=== PATIENT | female | born 1990 | race Caucasian/White ===

== ENCOUNTER 2016-11-23 04:14 | Outpatient (CLI) | payer SELFPAY ==
[2016-11-23] MEDS ORDERED: VISTARIL PO ONE (07:30)
== END 2016-11-23 07:50 | disposition home or self-care (01) ==
LOC: TRG 04:14
PROVIDERS: ATTEND Obstetrics & Gynecology
DX: O62.9 Abnormality of forces of labor, unspecified (principal); Z3A.40 40 weeks gestation of pregnancy
CPT/HCPCS: 59025; Q0177

== ENCOUNTER 2016-11-23 12:16 | Inpatient (IN) | payer OTHER ==
[2016-11-23] MEDS ORDERED: LACTATED RINGERS 2,000 ML ONE (12:21)
[2016-11-23] MEDS ORDERED: STADOL IV PRN (13:20)
[2016-11-23] MEDS ORDERED: MINERAL OIL PO PRN (13:20)
[2016-11-23] MEDS ORDERED: ePHEDrine SULFATE IV PRN ×2 (13:20→16:15)
[2016-11-23] MEDS ORDERED: ZOFRAN IV PRN (13:20)
[2016-11-23] MEDS ORDERED: SUBLIMAZE IV PRN (13:20)
[2016-11-23] MEDS ORDERED: BRETHINE SUB-Q PRN (13:20)
[2016-11-23] MEDS ORDERED: BRETHINE IVP PRN (13:20)
--- NOTE | 2016-11-23 13:27 | History and Physical Report ---
History of Present Illness Date of examination: 11/23/16 Date of admission: 11/23/16 12:16 Chief complaint: Active labor History of present illness: 26 yo at 40.1 weeks gestation. Pt of [employer]NAGER since 8.2 weeks. GBS negative. Past History Past Medical History: no pertinent history Past Surgical History: no surgical history Family/Genetic History: cancer (stomach), other (Alzheimers) Social history: full code, other (French speaking only). denies: smoking, alcohol abuse, prescription drug abuse, IV drug use - Obstetrical History Expected Date of Delivery: 11/22/16 Actual Gestation: 40 Week(s) 1 Day(s) : 2 Para: 0 Hx # Term Pregnancies: 0 Number of Pregnancies: 0 Spontaneous Abortions: 1 Induced : 0 Number of Living Children: 0 Medications and Allergies Allergies Allergy/AdvReac Type Severity Reaction Status Date / Time No Known Allergies Allergy Verified 11/23/16 07:25 Active Meds: Active Medications Butorphanol Tartrate (Stadol) 2 mg IV Q2H PRN PRN Reason: Pain , Severe (7-10) Ephedrine Sulfate (Ephedrine Sulfate) 10 mg IV Q2M PRN PRN Reason: Hypotension Stop: 11/23/16 13:25 Fentanyl (Sublimaze) 100 mcg IV Q2H PRN PRN Reason: Labor Pain Lactated Ringer's (Lactated Ringers) 1,000 mls @ 125 mls/hr IV DIRECT COLIN Oxytocin/Sodium Chloride (Pitocin/Ns 20 Unit/1000ml Drip) 20 units in 1,000 mls @ 125 mls/hr IV DIRECT COLIN Oxytocin/Sodium Chloride (Pitocin/Ns 30 Unit/500ml) 30 units in 500 mls @ 2 mls /hr IV TITR COLIN PRN Reason: Protocol Lidocaine (Xylocaine 2%) 20 ml INFILTRATI ONCE ONE Stop: 11/23/16 13:21 Mineral Oil (Mineral Oil) 30 ml PO QHS PRN PRN Reason: Constipation Ondansetron HCl (Zofran) 4 mg IV Q8H PRN PRN Reason: Nausea And Vomiting Review of Systems All systems: negative - Vital Signs Vital signs: Vital Signs Pulse BP 80 126/76 11/23/16 12:55 11/23/16 12:55 Temp Pulse Resp BP Pulse Ox 80 126/76 11/23/16 12:55 11/23/16 12:55 - Physical Exam Cardiovascular: Regular rate Lungs: Positive: Normal air movement Vagina: Positive: normal moisture (normal show) Uterus: Positive: enlarged Extremities: Positive: normal Deep Tendon Reflex Grade: Normal +2 - Obstetrical FHR: category 1 FHR comments: FHT 145 Uterine Contraction Monitor Mode: External Cervical Dilatation: 4.5 (in office) Cervical Effacement Percentage: 80 station: -1 Uterine Contraction Frequency (min): q4min Uterine Contraction Pattern: Regular Uterine Tone Measurement Phase: Resting Uterine Contraction Intensity: Moderate Results All other labs normal. Assessment and Plan A: IUP @ 40.1 weeks Category 1 FHT Painful contractions GBS negative P: Admit to L&D Pain medication/epidural as desired.
[2016-11-23] MEDS ORDERED: XYLOCAINE 2% INFILTRATI ONE (14:00)
[2016-11-23] MEDS ORDERED: PITOCin/NS 30 UNIT/500ML 30 UNITS/500 ML BAG IV SCH (14:00)
[2016-11-23] MEDS ORDERED: PITOCin/NS 20 UNIT/1000ML DRIP 20 UNITS/1,000 ML BAG IV SCH (14:00)
[2016-11-23] MEDS ORDERED: LACTATED RINGERS 1,000 ML IV SCH (14:00)
[2016-11-23 14:42] LABS: Hematocrit 37.3 % (30.3-42.9); Hemoglobin 12.2 gm/dl (10.1-14.3); Mean Corpuscular HGB Conc 33 % (30-34); Mean Corpuscular Hemoglobin 29 pg (28-32); Mean Corpuscular Volume 87 fl (79-97); Platelet Count 220 K/mm3 (140-440); Red Blood Count 4.27 M/mm3 (3.65-5.03); Red Cell Distribution Width 13.6 % (13.2-15.2)
[2016-11-23 14:51] LABS: White Blood Count 22.1 K/mm3 (4.5-11.0)
[2016-11-23] MEDS ORDERED: ePHEDrine SULFATE ONE (15:39)
[2016-11-23] MEDS ORDERED: NARCAN 2 MG/2 ML IV PRN (16:15)
--- NOTE | 2016-11-23 16:15 | Anesthesia Consultation ---
Anesthesia Consult and Med Hx Date of service: 11/23/16 - Airway Anesthetic Teeth Evaluation: Good ROM Head & Neck: Adequate Mental/Hyoid Distance: Adequate Mallampati Class: Class II Intubation Access Assessment: Probably Good - Pulmonary Exam CTA: Yes - Cardiac Exam Cardiac Exam: RRR - Pre-Operative Health Status ASA Pre-Surgery Classification: ASA2 Proposed Anesthetic Plan: Epidural, Spinal - Pulmonary Hx Asthma: No COPD: No Hx Pneumonia: No - Cardiovascular System Hx Hypertension: No - Central Nervous System Hx Seizures: No Hx Psychiatric Problems: No - Endocrine Hx Renal Disease: No Hx End Stage Renal Disease: No Hx Hypothyroidism: No Hx Hyperthyroidism: No - Hematic Hx Anemia: Yes Hx Sickle Cell Disease: No - Other Systems Hx Alcohol Use: No - Additional Comments Anesthesia Medical History Comments: +iup
[2016-11-23] MEDS ORDERED: fentaNYL-BUPIV 2 MCG/ML-0.125% 200 MCG/100 ML BAG EPIDURAL SCH (17:00)
[2016-11-23] MEDS ORDERED: MARCAINE-EPI/PF 0.5%-1:200,000 INFILTRATI ONE (19:03)
--- NOTE | 2016-11-23 19:29 | Progress Note ---
Assessment and Plan A: IUP @ 40.1 weeks Category 2 FHT Feeling pressure with epidural AROM 1920, small cloudy fluid SVE 9.5-90-0 GBS negative P: Continue routine care Labor down Subjective - Subjective Date of service: 11/23/16 Principal diagnosis: Labor Interval history: 26 yo at 40.1 weeks gestation. Pt of [employer] TECH since 8.2 weeks. GBS negative. Patient reports: movement normal Objective - Vital Signs Vital Signs: Vital Signs - 12hr 11/23/16 11/23/16 11/23/16 12:55 14:08 16:00 Pulse Rate 80 81 Respiratory 18 Rate Blood Pressure 126/76 120/67 O2 Sat by Pulse Oximetry 11/23/16 11/23/16 11/23/16 16:01 16:04 16:06 Pulse Rate 92 H 86 88 Respiratory Rate Blood Pressure 102/59 104/58 O2 Sat by Pulse 99 98 Oximetry 11/23/16 11/23/16 11/23/16 16:08 16:10 16:11 Pulse Rate 102 H 90 Respiratory Rate Blood Pressure 100/58 101/59 O2 Sat by Pulse 98 Oximetry 11/23/16 11/23/16 11/23/16 16:12 16:14 16:16 Pulse Rate 88 88 84 Respiratory Rate Blood Pressure 115/54 101/51 95/54 O2 Sat by Pulse 98 Oximetry 11/23/16 11/23/16 11/23/16 16:18 16:20 16:21 Pulse Rate 82 82 86 Respiratory Rate Blood Pressure 95/57 94/54 O2 Sat by Pulse 97 Oximetry 11/23/16 11/23/16 11/23/16 16:22 16:24 16:26 Pulse Rate 86 82 90 Respiratory Rate Blood Pressure 93/54 94/58 96/57 O2 Sat by Pulse 96 Oximetry 11/23/16 11/23/16 11/23/16 16:28 16:30 16:31 Pulse Rate 74 78 Respiratory Rate Blood Pressure 90/58 100/62 O2 Sat by Pulse 99 Oximetry 11/23/16 11/23/16 11/23/16 16:32 16:34 16:36 Pulse Rate 80 76 78 Respiratory Rate Blood Pressure 87/48 85/50 89/54 O2 Sat by Pulse 100 Oximetry 11/23/16 11/23/16 11/23/16 16:38 16:40 16:41 Pulse Rate 83 79 83 Respiratory Rate Blood Pressure 89/50 91/53 O2 Sat by Pulse 99 Oximetry 11/23/16 11/23/16 11/23/16 16:42 16:44 16:46 Pulse Rate 80 78 80 Respiratory Rate Blood Pressure 88/50 90/51 95/52 O2 Sat by Pulse 99 Oximetry 11/23/16 11/23/16 11/23/16 16:48 16:50 16:51 Pulse Rate 75 77 82 Respiratory Rate Blood Pressure 100/55 95/54 O2 Sat by Pulse 99 Oximetry 11/23/16 11/23/16 11/23/16 16:52 16:54 16:56 Pulse Rate 81 85 86 Respiratory Rate Blood Pressure 92/55 92/53 97/55 O2 Sat by Pulse 99 Oximetry 11/23/16 11/23/16 11/23/16 16:58 17:00 17:01 Pulse Rate 83 78 81 Respiratory Rate Blood Pressure 95/51 118/61 O2 Sat by Pulse 99 Oximetry 11/23/16 11/23/16 11/23/16 17:02 17:04 17:06 Pulse Rate 77 74 77 Respiratory Rate Blood Pressure 109/58 104/58 110/64 O2 Sat by Pulse 99 Oximetry 11/23/16 11/23/16 11/23/16 17:11 17:16 17:21 Pulse Rate 76 77 74 Respiratory Rate Blood Pressure O2 Sat by Pulse 98 98 98 Oximetry 11/23/16 11/23/16 11/23/16 17:22 17:26 17:31 Pulse Rate 76 77 74 Respiratory Rate Blood Pressure 110/62 O2 Sat by Pulse 98 98 Oximetry 11/23/16 11/23/16 11/23/16 17:36 17:41 17:46 Pulse Rate 78 79 89 Respiratory Rate Blood Pressure 113/63 O2 Sat by Pulse 98 99 100 Oximetry 11/23/16 11/23/16 11/23/16 17:51 17:53 17:56 Pulse Rate 88 78 83 Respiratory Rate Blood Pressure 116/68 O2 Sat by Pulse 99 98 Oximetry 11/23/16 11/23/16 11/23/16 18:01 18:06 18:11 Pulse Rate 83 83 77 Respiratory Rate Blood Pressure 116/68 O2 Sat by Pulse 98 98 98 Oximetry 11/23/16 11/23/16 11/23/16 18:16 18:21 18:23 Pulse Rate 76 84 80 Respiratory Rate Blood Pressure 118/67 O2 Sat by Pulse 98 98 Oximetry 11/23/16 11/23/16 11/23/16 18:26 18:31 18:36 Pulse Rate 83 79 80 Respiratory Rate Blood Pressure O2 Sat by Pulse 99 99 98 Oximetry 11/23/16 11/23/16 11/23/16 18:37 18:41 18:46 Pulse Rate 78 89 84 Respiratory Rate Blood Pressure 117/68 O2 Sat by Pulse 98 98 Oximetry 11/23/16 11/23/16 11/23/16 18:51 18:52 18:56 Pulse Rate 81 82 78 Respiratory Rate Blood Pressure 111/64 O2 Sat by Pulse 97 99 Oximetry 11/23/16 11/23/16 11/23/16 19:01 19:06 19:11 Pulse Rate 79 77 83 Respiratory Rate Blood Pressure 115/68 O2 Sat by Pulse 99 98 97 Oximetry 11/23/16 11/23/16 11/23/16 19:16 19:21 19:23 Pulse Rate 86 89 79 Respiratory Rate Blood Pressure 97/50 O2 Sat by Pulse 97 99 Oximetry - Exam Cardiovascular: Regular rate Lungs: Normal air movement FHR: category 2 FHR comments: FHR 150s with occasional late decelerations Uterine Contraction Monitor Mode: External Cervical Dilatation: 9.5 (AROM small amount of cloudy fluid) Cervical Effacement Percentage: 90 station: 0 Uterine Contraction Frequency (min): q1.5-3 Uterine Contraction Pattern: Regular Uterine Tone Measurement Phase: Resting Uterine Contraction Intensity: Strong/Firm - Labs Labs: Abnormal Labs 11/23/16 14:10 WBC 22.1 H Laboratory Results - last 24 hr 11/23/16 11/23/16 14:10 14:10 WBC 22.1 H RBC 4.27 Hgb 12.2 Hct 37.3 MCV 87 MCH 29 MCHC 33 RDW 13.6 Plt Count 220 Blood Type O POSITIVE Antibody Screen TNR ALAN Antibody Screen Negative
--- NOTE | 2016-11-23 21:42 | Procedure Note ---
OB Delivery Note - Delivery Date of Delivery: 11/23/16 (2120) Surgeon: MARIELY MILES Estimated blood loss: 200cc - Vaginal Delivery presentation: vertex Delivery position: OA Intrapartum events: mult. late decelerations, mult.variable deceleratio Delivery induction: none Delivery augmentation: rupture of membranes, pitocin Delivery monitor: external FHT, external uterine Route of delivery: Delivery placenta: spontaneous Delivery cord: 3 umbilical vessels Anesthesia: epidural Delivery comments: Baby girl Diego was delivered on 11/23/2016 @ 2120 over an intact perineum with small, hemostatic labial lacerations. was placed directly onto mother's chest/abdomen and cord was clamped and cut by FOB. Placenta delivered negron side presenting. Undus firm and midline, minimal bleeding. weighed 7lbs and had apgars of 8/9. EBL 200cc. - Infant A at 1 minute: 8 at 5 minutes: 9 Gender: Female
[2016-11-23] MEDS ORDERED: MILK OF MAGNESIA PO PRN (21:43)
[2016-11-23] MEDS ORDERED: LANSINOH TP PRN (21:43)
[2016-11-23] MEDS ORDERED: DULCOLAX PR PRN (21:43)
[2016-11-23] MEDS ORDERED: TUCKS PAD TP PRN (21:43)
[2016-11-23] MEDS ORDERED: TYLENOL PO PRN (21:43)
[2016-11-23] MEDS ORDERED: NORCO 5/325 PO PRN (21:43)
[2016-11-23] MEDS ORDERED: SODIUM CHLORIDE FLUSH SYRINGE 10 ML IV PRN (22:00)
[2016-11-24] MEDS: MOTRIN PO SCH ×4 (00:25→18:01)
--- NOTE | 2016-11-24 08:27 | Progress Note ---
Assessment and Plan A: PPD 1 S/P VSS P: Routine care D/C tomorrow Plans for pills for contraception Subjective - Subjective Date of service: 11/24/16 Principal diagnosis: PPD1 Interval history: 26 yo at 40.1 weeks gestation. 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 GBS negative. Patient reports: appetite normal, voiding normally, pain well controlled, ambulating normally [place]: doing well Objective - Vital Signs Latest vital signs: Vital Signs Temp Pulse Pulse Resp BP BP Pulse Ox 11/24/16 08:10 98.6 F 108 H 18 95/60 11/24/16 04:10 98.2 F 87 18 93/63 11/23/16 23:30 98.3 F 85 18 97/51 11/23/16 22:27 83 103/55 11/23/16 22:12 84 96/55 11/23/16 21:57 83 105/58 11/23/16 21:42 92 H 118/63 11/23/16 21:26 86 111/61 11/23/16 21:22 80 111/60 11/23/16 20:36 86 114/64 11/23/16 20:31 85 99 11/23/16 20:26 78 100 11/23/16 20:21 86 106/56 99 11/23/16 20:16 83 100 11/23/16 20:11 88 100 11/23/16 20:06 82 101/59 100 11/23/16 20:01 83 100 11/23/16 19:56 95 H 99 11/23/16 19:51 97 H 103/65 98 11/23/16 19:46 84 97 11/23/16 19:41 82 99 11/23/16 19:38 71 109/65 11/23/16 19:37 75 104/65 11/23/16 19:36 82 99 11/23/16 19:31 85 97 11/23/16 19:26 76 99 11/23/16 19:23 79 97/50 11/23/16 19:21 89 99 11/23/16 19:16 86 97 11/23/16 19:11 83 97 11/23/16 19:06 77 115/68 98 11/23/16 19:01 79 99 11/23/16 18:56 78 99 0530/17 18:52 82 111/64 0530/17 18:51 81 97 0530/17 18:46 84 98 0530/17 18:41 89 98 0530/17 18:37 78 117/68 0530/17 18:36 80 98 0530/17 18:31 79 99 0530/17 18:26 83 99 0530/17 18:23 80 118/67 0530/17 18:21 84 98 0530/17 18:16 76 98 0530/17 18:11 77 98 0530/17 18:06 83 116/68 98 0530/17 18:01 83 98 0530/17 17:56 83 98 0530/17 17:53 78 116/68 0530/17 17:51 88 99 0530/17 17:46 89 100 0530/17 17:41 79 99 0530/17 17:36 78 113/63 98 0530/17 17:31 74 98 0530/17 17:26 77 98 0530/17 17:22 76 110/62 0530/17 17:21 74 98 0530/17 17:16 77 98 0530/17 17:11 76 98 0530/17 17:06 77 110/64 99 0530/17 17:04 74 104/58 0530/17 17:02 77 109/58 0530/17 17:01 81 99 0530/17 17:00 78 118/61 0530/17 16:58 83 95/51 0530/17 16:56 86 97/55 99 0530/17 16:54 85 92/53 0530/17 16:52 81 92/55 0530/17 16:51 82 99 0530/17 16:50 77 95/54 0530/17 16:48 75 100/55 05/30/17 16:46 80 95/52 99 0530/17 16:44 78 90/51 0530/17 16:42 80 88/50 0530/17 16:41 83 99 05/30/17 16:40 79 91/53 0530/17 16:38 83 89/50 05/30/17 16:36 78 89/54 100 05/30/17 16:34 76 85/50 11/23/16 16:32 80 87/48 11/23/16 16:31 78 99 11/23/16 16:30 74 100/62 11/23/16 16:28 90/58 11/23/16 16:26 90 96/57 96 11/23/16 16:24 82 94/58 11/23/16 16:22 86 93/54 11/23/16 16:21 86 97 11/23/16 16:20 82 94/54 11/23/16 16:18 82 95/57 11/23/16 16:16 84 95/54 98 11/23/16 16:14 88 101/51 11/23/16 16:12 88 115/54 11/23/16 16:11 90 98 11/23/16 16:10 101/59 11/23/16 16:08 102 H 100/58 11/23/16 16:06 88 104/58 98 11/23/16 16:04 86 102/59 11/23/16 16:01 92 H 99 11/23/16 16:00 81 120/67 11/23/16 14:08 18 11/23/16 12:55 80 126/76 Intake and Output 11/23/16 11/24/16 11/24/16 22:59 06:59 14:59 Intake Total 240 240 Output Total 1200 400 Balance -960 -160 Intake: Oral 240 240 Output: Urine 1200 400 Void 1200 400 Other: Total, Intake Amount 240 240 Total, Output Amount 800 400 Weight 158 lb Estimated Blood Loss 200 - Exam Cardiovascular: Present: Regular rate Lungs: Present: Normal air movement Vulva: both: normal (scant lochia) Uterus: Present: fundal height below umbilicus Extremities: Present: normal Deep Tendon Reflex Grade: Normal +2 - Labs Labs: Abnormal lab results 11/23/16 Range/Units 14:10 WBC 22.1 H (4.5-11.0) K/mm3 - Allied health notes Allied health notes reviewed: nursing
--- NOTE | 2016-11-24 08:29 | Discharge Summary ---
Providers - Providers Date of Admission: 11/23/16 12:16 Date of discharge: 11/25/16 Attending physician: IBRAHIMA BRADY MD Primary care physician: IBRAHIMA BRADY MD Hospitalization Reason for admission: active labor Delivery: Other procedures: none complications: none Discharge diagnosis: IUP at term delivered [place] baby: female Hospital course: uneventful Condition at discharge: Good Disposition: DISCHARGED TO HOME OR SELFCARE Plan - Provider Discharge Summary Activity: routine, no sex for 6 weeks, no heavy lifting 4 weeks, no strenuous exercise Diet: routine Instructions: routine Additional instructions: [] Smoking cessation referral if applicable(refer to patient education folder for contact #) [] Refer to [facility] Booklet Call your doctor immediately for: * Fever > 100.5 * Heavy vaginal bleeding ( >1 pad per hour) * Severe persistent headache * Shortness of breath * Reddened, hot, painful area to leg or breast * Drainage or odor from incision. * Keep incision clean and dry at all times and follow doctor's instructions regarding bathing/showering - Follow up plan Follow up: [facility] [Provider Group] - 6 Weeks
[2016-11-24 10:29] LABS: Hematocrit 35.3 % (30.3-42.9); Hemoglobin 11.8 gm/dl (10.1-14.3)
[2016-11-25] MEDS: MOTRIN PO SCH ×2 (00:10→06:05)
[2016-11-25 09:30] VITALS: BP 96/60
== END 2016-11-25 14:40 | disposition home or self-care (01) | DRG 775 ==
LOC: LD 12:16 → OB 23:13
PROVIDERS: ADMIT Obstetrics & Gynecology; ATTEND Obstetrics & Gynecology
PROC: 10E0XZZ Delivery of Products of Conception, External Approach (ICD-10-PCS; principal; 2016-11-23)
PROC: 3E0S3CZ (ICD-10-PCS; 2016-11-23)
PROC: 00HU33Z Insertion of Infusion Device into Spinal Canal, Percutaneous Approach (ICD-10-PCS; 2016-11-23)
PROC: 10907ZC Drainage of Amniotic Fluid, Therapeutic from Products of Conception, Via Natural or Artificial Opening (ICD-10-PCS; 2016-11-23)
DX: O76 Abnormality in fetal heart rate and rhythm complicating labor and delivery (principal); Z3A.40 40 weeks gestation of pregnancy; Z37.0 Single live birth; Z80.0 Family history of malignant neoplasm of digestive organs; Z82.0 Family history of epilepsy and other diseases of the nervous system
CPT/HCPCS: 36415; 85014; 85018; 85027; 86850; 86900; 86901; 99211; G0463; J2590; J3010; J7120

== ENCOUNTER 2018-11-27 16:11 | Inpatient (IN) | payer MEDICAID, OTHER ==
[2018-11-27] MEDS ORDERED: BRETHINE IVP PRN (17:41)
[2018-11-27] MEDS ORDERED: STADOL IV PRN (17:41)
[2018-11-27] MEDS ORDERED: AMPICILLIN/NS 2 GM/100 ML 2 GM/100 ML BAG IV ONE (17:41)
[2018-11-27] MEDS ORDERED: SUBLIMAZE IV PRN (17:41)
[2018-11-27] MEDS ORDERED: MINERAL OIL PO PRN (17:41)
[2018-11-27] MEDS ORDERED: BRETHINE SUB-Q PRN (17:41)
[2018-11-27] MEDS ORDERED: XYLOCAINE 2% INFILTRATI ONE (17:41)
--- NOTE | 2018-11-27 17:56 | History and Physical Report ---
History of Present Illness Date of examination: 11/27/18 Date of admission: 11/27/18 16:11 Chief complaint: " Sent from the office for delivery" History of present illness: 28yo G 3 P 1 0 1 1 @ 40 weeks 3 days here from the clinic for induction of labor secondary to oligohydramnios and postdates. US 11/27/18: ELISA 7.14, Placenta Grade 3. She reports +FMs but denies UCs, VB or LOF. 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 Her course has been unremarkable. Labs: O+, Antibody Screen neg, RI, VDRL NRHBsAg neg, HIV neg, GC/CT/Trich neg, MSAFP neg, Diabetes Screen 70, GBS pos. Past History Past Medical History: no pertinent history Past Surgical History: no surgical history Family/Genetic History: cancer (stomach), other (Alzheimer's Disease) Social history: no significant social history, , lives with family, full code. denies: smoking, alcohol abuse, prescription drug abuse, IV drug use - Obstetrical History Expected Date of Delivery: 11/24/18 Actual Gestation: 40 Week(s) 3 Day(s) : 3 Para: 1 Hx # Term Pregnancies: 1 Number of Pregnancies: 0 Spontaneous Abortions: 1 Induced : 0 Number of Living Children: 1 #1 Gender: Female year: 2015 (11/23/2014) Birthweight: 3.487 kg Method of Delivery: Vaginal Gestational age at delivery: 40 Complications: none Medications and Allergies Allergies Allergy/AdvReac Type Severity Reaction Status Date / Time No Known Allergies Allergy Verified 11/23/16 07:25 Home Medications Medication Instructions Recorded Confirmed Last Taken Type No Known Home Medications [No 11/23/16 11/23/16 Unknown History Reported Home Medications] Review of Systems All systems: negative - Physical Exam Abdomen: Positive: normal appearance, soft Genitourinary (Female): Positive: normal external genitalia, normal perenium Vulva: both: normal Vagina: Positive: normal moisture Uterus: Positive: normal size, normal contour Anus/Rectum: Positive: normal perianal skin Extremities: Positive: normal - Obstetrical FHR: auscultation normal, category 1 FHR comments: baseline 130, moderate variability, 15x15 accels, no decels Uterine Contraction Monitor Mode: External Cervical Dilatation: 2.5 Cervical Effacement Percentage: 60 station: -2 Uterine Contraction Frequency (min): 2-5 Uterine Contraction Pattern: Regular Results All other labs normal. Assessment and Plan - Patient Problems (1) 40 weeks gestation of Current Visit: Yes Status: Acute (2) Oligohydramnios in third trimester Current Visit: Yes Status: Acute Qualifiers: Fetus number: single or unspecified fetus Qualified Code(s): O41.03X0 - Oligohydramnios, third trimester, not applicable or unspecified (3) Encounter for induction of labor Current Visit: Yes Status: Acute Plan to address problem: Admit to L&D with routine labor orders Start oxytocin for labor induction Anticipate vaginal delivery (4) Group B Streptococcus carrier, +RV culture, currently Current Visit: Yes Status: Acute Plan to address problem: Start Ampicillin for GBS prophylaxis
[2018-11-27] MEDS ORDERED: PITOCin/NS 30 UNIT/500ML 30 UNITS/500 ML BAG IV SCH (18:00)
[2018-11-27] MEDS ORDERED: PITOCin/NS 20 UNIT/1000ML DRIP 20 UNITS/1,000 ML BAG IV SCH (18:00)
[2018-11-27] MEDS ORDERED: LACTATED RINGERS 1,000 ML IV SCH (18:00)
[2018-11-27 18:11] LABS: Hematocrit 34.7 % (30.3-42.9); Hemoglobin 11.7 gm/dl (10.1-14.3); Mean Corpuscular HGB Conc 34 % (30-34); Mean Corpuscular Volume 87 fl (79-97); Platelet Count 203 K/mm3 (140-440); Red Blood Count 3.99 M/mm3 (3.65-5.03); Red Cell Distribution Width 14.1 % (13.2-15.2)
[2018-11-28] MEDS ORDERED: AMPICILLIN/NS 1 GM/50 ML 1 GM/50 ML BAG ONE (03:00)
[2018-11-28] MEDS ORDERED: AMPICILLIN/NS 1 GM/50 ML 1 GM/50 ML BAG IV SCH (04:00)
[2018-11-28] MEDS ORDERED: NARCAN 2 MG/2 ML IV PRN (04:10)
--- NOTE | 2018-11-28 04:10 | Anesthesia Consultation ---
Anesthesia Consult and Med Hx Date of service: 11/28/18 - Airway Anesthetic Teeth Evaluation: Good ROM Head & Neck: Adequate Mental/Hyoid Distance: Adequate Mallampati Class: Class II Intubation Access Assessment: Good - Pulmonary Exam CTA: Yes - Cardiac Exam Cardiac Exam: RRR - Pre-Operative Health Status ASA Pre-Surgery Classification: ASA2 Proposed Anesthetic Plan: Epidural - Pulmonary Hx Asthma: No COPD: No Hx Pneumonia: No - Cardiovascular System Hx Hypertension: No - Central Nervous System Hx Seizures: No Hx Psychiatric Problems: No - Endocrine Hx Renal Disease: No Hx End Stage Renal Disease: No Hx Hypothyroidism: No Hx Hyperthyroidism: No - Hematic Hx Anemia: Yes Hx Sickle Cell Disease: No - Other Systems Hx Alcohol Use: No
[2018-11-28] MEDS ORDERED: fentaNYL-BUPIV 2 MCG/ML-0.125% 200 MCG/100 ML BAG EPIDURAL SCH (05:00)
--- NOTE | 2018-11-28 08:04 | Procedure Note ---
OB Delivery Note - Delivery Date of Delivery: 11/28/18 Surgeon: IBRAHIMA BLAIR Estimated blood loss: 100cc - Vaginal Delivery presentation: vertex Delivery position: OA Delivery induction: oxytocin Delivery augmentation: rupture of membranes, pitocin Delivery monitor: external FHT, external uterine Route of delivery: Delivery placenta: spontaneous Delivery cord: 3 umbilical vessels Episiotomy: none Delivery laceration: none Anesthesia: epidural Delivery comments: Infant delivered OA and placed on Mom's chest for [id number] bonding and delayed cord clamping, cut by Dad - A at 1 minute: 8 at 5 minutes: 9 Gender: Male (2866gms)
[2018-11-28] MEDS ORDERED: ZOFRAN IV PRN (08:07)
[2018-11-28] MEDS ORDERED: LANSINOH TP PRN (08:07)
[2018-11-28] MEDS ORDERED: BENADRYL PO PRN (08:07)
[2018-11-28] MEDS ORDERED: TUCKS PAD TP PRN (08:07)
[2018-11-28] MEDS ORDERED: PHENERGAN PO PRN (08:07)
[2018-11-28] MEDS ORDERED: TYLENOL PO PRN (08:07)
[2018-11-28] MEDS ORDERED: PHENERGAN PR PRN (08:07)
[2018-11-28] MEDS ORDERED: PITOCin/NS 20 UNIT/1000ML DRIP 20 UNITS/1,000 ML BAG IV SCH (09:00)
[2018-11-28] MEDS ORDERED: SODIUM CHLORIDE FLUSH SYRINGE 10 ML IV NR (09:00)
[2018-11-28] MEDS ORDERED: PRENATAL VITAMIN PO SCH (10:00)
[2018-11-28] MEDS ORDERED: DULCOLAX PR PRN (10:00)
[2018-11-28] MEDS: COLACE PO SCH ×2 (12:55→23:10)
[2018-11-28] MEDS: IBUPROFEN PO SCH ×2 (12:55→22:15)
[2018-11-28] MEDS: FEOSOL PO SCH ×2 (12:55→23:10)
--- NOTE | 2018-11-28 17:55 | Progress Note ---
Assessment and Plan - Patient Problems (1) (normal spontaneous vaginal delivery) Current Visit: Yes Status: Acute Plan to address problem: Stat H/H If H/H stable, will d/c pt after 1929 Subjective - Subjective Date of service: 11/28/18 Principal diagnosis: IOL secondary to post dates Interval history: See admission H & P and OB delivery summary Patient reports: appetite normal, voiding normally, pain well controlled, flatus, ambulating normally [place]: other ( has been transferred to higher level care facility for testicular torsion. Pt request to be d/c to be with baby.) Objective - Vital Signs Latest vital signs: Vital Signs Temp Pulse Resp BP BP Pulse Ox 11/28/18 11:49 98.2 F 77 18 103/54 103/54 97 11/28/18 08:40 85 98 11/28/18 08:37 74 89/53 11/28/18 08:35 73 97 11/28/18 08:32 75 84/52 11/28/18 08:30 82 94/53 96 11/28/18 08:25 78 96 11/28/18 08:20 81 96 11/28/18 08:15 80 96 11/28/18 08:10 75 96 11/28/18 08:05 72 96 11/28/18 08:00 74 96 11/28/18 07:55 78 96 11/28/18 07:50 74 96 11/28/18 07:45 76 96 11/28/18 07:40 78 96 11/28/18 07:35 81 96 11/28/18 07:30 73 97 11/28/18 07:27 83 96/52 11/28/18 07:22 75 96/55 11/28/18 07:17 79 104/63 11/28/18 07:16 76 108/66 11/28/18 07:02 76 111/65 11/28/18 06:59 68 98 11/28/18 06:54 73 99 11/28/18 06:49 71 98 11/28/18 06:46 71 101/60 11/28/18 06:44 67 98 11/28/18 06:39 67 98 11/28/18 06:34 70 98 11/28/18 06:32 70 98/57 11/28/18 06:29 74 98 11/28/18 06:24 72 98 06 06:19 74 97 06 06:17 70 95/54 11/28/18 06:14 68 97 06 06:09 72 99 11/28/18 06:04 67 98 06 06:02 71 98/58 11/28/18 05:59 67 97 06 05:54 71 97 06 05:49 67 98 11/28/18 05:46 71 96/56 11/28/18 05:44 66 98 11/28/18 05:39 70 98 11/28/18 05:34 69 98 06 05:31 71 89/51 11/28/18 05:29 68 98 06 05:24 74 99 06 05:19 73 98 06 05:16 77 88/55 11/28/18 05:14 70 99 06 05:09 71 98 06 05:04 71 98 11/28/18 05:02 74 87/53 11/28/18 04:59 75 98 11/28/18 04:54 74 97 11/28/18 04:49 74 97 11/28/18 04:48 74 86/51 11/28/18 04:44 72 96 11/28/18 04:39 72 97 11/28/18 04:34 73 97 11/28/18 04:31 72 80/46 11/28/18 04:29 74 97 11/28/18 04:28 71 83/45 11/28/18 04:25 75 88/53 11/28/18 04:24 74 96 11/28/18 04:22 71 82/48 11/28/18 04:19 73 83/48 97 11/28/18 04:16 75 85/47 11/28/18 04:14 93 H 97 11/28/18 04:13 77 96/55 11/28/18 04:10 77 107/54 11/28/18 04:09 81 98 11/28/18 04:07 73 99/58 11/28/18 04:04 85 95/50 98 11/28/18 04:01 99 H 98/55 11/28/18 03:59 85 98 11/28/18 03:58 71 101/59 11/28/18 03:54 89 98 11/28/18 03:50 77 103/50 11/28/18 03:49 85 98 11/27/18 23:55 72 98/55 11/27/18 19:50 77 95/54 11/27/18 19:46 97.6 F 18 Intake and Output 11/28/18 11/28/18 11/28/18 07:59 15:59 23:59 Intake Total 21.8 360 Output Total 900 Balance -878.2 360 Intake: IV 21.8 PITOCin/NS 30 UNIT/500ML 21.8 30 units In 500 ml @ As Directed IV TITR COLIN Rx#: [id number] Oral 360 Output: Urine 900 Indwelling Catheter 900 Other: Total, Intake Amount 360 Total, Output Amount 900 # Voids Void 2 Weight 72.121 kg Estimated Blood Loss 100 Patient Weight 11/28/18 23:59 Weight 72.121 kg - Exam Breasts: Present: deferred Cardiovascular: Present: Regular rate Lungs: Present: Normal air movement Abdomen: Present: soft, normal bowel sounds Uterus: Present: firm, fundal height below umbilicus (U-1) Extremities: Present: normal Deep Tendon Reflex Grade: Normal +2
--- NOTE | 2018-11-28 17:59 | Discharge Summary ---
Providers - Providers Date of Admission: 11/27/18 16:11 Date of discharge: 11/28/18 (1999) Attending physician: USAMA LECHUGA Primary care physician: USAMA LECHUGA Hospitalization Reason for admission: induction of labor, IUP at term Delivery: Episiotomy: none Laceration: none Other procedures: none complications: none Discharge diagnosis: other () [place] baby: male Hospital course: See admission H & P, OB delivery summary and PP progress notes Condition at discharge: Stable Disposition: DC-01 TO HOME OR SELFCARE - Discharge Diagnoses (1) (normal spontaneous vaginal delivery) Status: Acute Plan - Provider Discharge Summary Activity: routine, no sex for 6 weeks, no heavy lifting 4 weeks, no strenuous exercise Diet: routine Instructions: routine Additional instructions: [] Smoking cessation referral if applicable(refer to patient education folder for contact #) [] Refer to [facility] Booklet Call your doctor immediately for: * Fever > 100.5 * Heavy vaginal bleeding ( >1 pad per hour) * Severe persistent headache * Shortness of breath * Reddened, hot, painful area to leg or breast * Drainage or odor from incision. - Follow up plan Follow up: USAMA LECHUGA MD [Primary Care Provider] - 6 Weeks
[2018-11-28] MEDS: NORCO 5/325 PO PRN (20:18)
[2018-11-28 20:38] LABS: Hematocrit 30.3 % (30.3-42.9)
[2018-11-28] MEDS ORDERED: MILK OF MAGNESIA PO PRN (22:00)
[2018-11-29] MEDS: IBUPROFEN PO SCH ×2 (04:33→10:00)
[2018-11-29] MEDS ORDERED: BOOSTRIX IM ONE (06:00)
[2018-11-29] MEDS: NORCO 5/325 PO PRN (06:31)
[2018-11-29] MEDS ORDERED: M-M-R II VACCINE SUB-Q ONE (10:00)
[2018-11-29] MEDS: FEOSOL PO SCH (11:07)
[2018-11-29] MEDS: COLACE PO SCH (11:08)
[2018-11-29 13:21] VITALS: BP 98/66
== END 2018-11-29 14:20 | disposition home or self-care (01) | DRG 806 ==
LOC: LD 16:11 → OB 11-28 09:08
PROVIDERS: ADMIT Obstetrics & Gynecology; ATTEND Obstetrics & Gynecology
PROC: 3E033VJ Introduction of Other Hormone into Peripheral Vein, Percutaneous Approach (ICD-10-PCS; 2018-11-27)
PROC: 10E0XZZ Delivery of Products of Conception, External Approach (ICD-10-PCS; principal; 2018-11-28)
PROC: 3E0R3BZ Introduction of Anesthetic Agent into Spinal Canal, Percutaneous Approach (ICD-10-PCS; 2018-11-28)
PROC: 00HU33Z Insertion of Infusion Device into Spinal Canal, Percutaneous Approach (ICD-10-PCS; 2018-11-28)
PROC: 3E0234Z Introduction of Serum, Toxoid and Vaccine into Muscle, Percutaneous Approach (ICD-10-PCS; 2018-11-29)
DX: O48.0 Post-term pregnancy (principal); O41.03X0 Oligohydramnios, third trimester, not applicable or unspecified; O99.824 Streptococcus B carrier state complicating childbirth; Z37.0 Single live birth; Z3A.40 40 weeks gestation of pregnancy; Z23 Encounter for immunization
CPT/HCPCS: 36415; 85014; 85018; 85027; 86592; 86850; 86900; 86901; 90707; 90715; G0378; J0290; J0595; J2590; J3010; J7120